=== PATIENT | female | born 1945 | race Caucasian/White ===

== ENCOUNTER 2019-10-04 15:20 | Emergency (ER) | payer MEDICARE, OTHER ==
[~2019-10-04] VITALS: Ht 165.1 cm; Wt 81.7 kg
[~2019-10-04 15:20] MED LIST: ALBUTEROL2.5 MG/31 INH; ASPIR 8181 MG PO; BENZTROPINE MES1 MG PO; CIPRO250 M1 PO; COMPAZINE10 MG PO; COUMADIN 5 MG TA5 M1 PO; CYMBALTA60 MG PO; FENTANYL PATCH75 MCG TRANSDERM; FLOMAX0.4 MG PO; GLUCOPHAGE XR500 MG PO; KLOR-CON SPRIN10 MEQ PO; LISINOPRIL20 MG PO; NEURONTIN300 MG PO; PYRIDOSTIGMINE60 M1 PO; SEROQUEL XR 30300 M1 PO; STELARA45 MG/0.1 SUBQ; STELARA90 MG/1 ML; STOOL SOFTENER100 MG PO; SYNTHROID25 MCG PO; TENORMIN50 MG PO; TRAMADOL 50 MG50 MG PO; TRAZODONE HCL100 MG PO; TRAZODONE HCL50 MG PO; WOMEN'S LAXATIVE5 M1 PO; XANAX 0.5 MG0.5 MG PO
[2019-10-04 16:27] LABS: ABSOLUTE BASOPHILS 0.1 thou/uL (0.0-0.2); ABSOLUTE EOSINOPHILS 0.2 thou/uL (0.0-0.7); ABSOLUTE LYMPHOCYTES 2.1 thou/uL (0.8-5.3); ABSOLUTE MONOCYTES 0.4 thou/uL (0.0-1.2); ABSOLUTE NEUTROPHILS 4.1 thou/uL (1.6-8.1); EOSINOPHILS 3.3 %; HEMATOCRIT 38.2 % (37.0-47.0); HEMOGLOBIN 12.4 gm/dL (12.0-15.0); LYMPHOCYTES 30.8 %; MCH 26.8 pg (26.0-34.0); MCHC 32.4 g/dL (28.0-37.0); MCV 82.6 fL (80.0-100.0); MONOCYTES 5.2 %; MPV 7.7 fl. (7.2-11.1); NUCLEATED RBCS 0 /100WBC; PLATELET COUNT* 142 thou/uL (150-400); POLYS 59.7 %; RBC 4.63 mil/uL (4.20-5.00); RDW-CV 16.3 % (10.5-14.5); WBC 6.9 thou/uL (4.0-11.0)
[2019-10-04 16:33] LABS: CALCIUM 8.4 mg/dL (8.5-10.1); POTASSIUM 3.3 mmol/L (3.5-5.1)
[2019-10-04 16:38] LABS: ALBUMIN 3.8 g/dL (3.4-5.0); TOTAL BILIRUBIN 0.8 mg/dL (<0.1-1.0); TOTAL PROTEIN 7.8 g/dL (6.4-8.2)
[2019-10-04 16:52] LABS: INR 2.2; PROTIME 21.6 Seconds (9.20-11.50)
[2019-10-04 17:34] VITALS: BP 179/64
== END 2019-10-04 17:35 | disposition home or self-care (01) ==
LOC: M.ERS 15:20
PROVIDERS: Nurse Practitioner
DX: S30.1XXA Contusion of abdominal wall, initial encounter (principal); I10 Essential (primary) hypertension; E11.9 Type 2 diabetes mellitus without complications; K21.9 Gastro-esophageal reflux disease without esophagitis; L40.50 Arthropathic psoriasis, unspecified; M79.7 Fibromyalgia; F31.9 Bipolar disorder, unspecified; F41.9 Anxiety disorder, unspecified; Z95.5 Presence of coronary angioplasty implant and graft; Z86.73 Personal history of transient ischemic attack (TIA), and cerebral infarction without residual deficits; Z90.49 Acquired absence of other specified parts of digestive tract; Z90.710 Acquired absence of both cervix and uterus; Z86.718 Personal history of other venous thrombosis and embolism; Z86.14 Personal history of Methicillin resistant Staphylococcus aureus infection; Z91.048 Other nonmedicinal substance allergy status; Z88.0 Allergy status to penicillin; Z88.1 Allergy status to other antibiotic agents; Z88.8 Allergy status to other drugs, medicaments and biological substances; X58.XXXA Exposure to other specified factors, initial encounter; Y93.89 Activity, other specified; Y92.89 Other specified places as the place of occurrence of the external cause; Y99.8 Other external cause status

== ENCOUNTER → 2019-11-28 | Outpatient (CLI) | payer MEDICARE, OTHER ==
--- NOTE | 2019-11-28 14:11 | NUR ---
ARRIVED PER WHEELCHAIR. STAYED IN WHEELCHAIR PER PT REQUEST. PORT ACCESSED WITH OUT DIFFICULTY. GOOD BRISK BLOOD RETURN NOTED AND FLUSHED WITH EASE. LABS DRAWN PER ORDER. PORT FLUSHED AND DEACCESSED. TOLERATED WELL. DENIES QUESTIONS OR NEEDS AT DISCHARGE.
[2019-11-28 14:12] LABS: HEMATOCRIT 33.5 % (37.0-47.0); HEMOGLOBIN 10.7 gm/dL (12.0-15.0); MCH 26.5 pg (26.0-34.0); MCHC 32.1 g/dL (28.0-37.0); MCV 82.6 fL (80.0-100.0); MPV 8.5 fl. (7.2-11.1); RBC 4.05 mil/uL (4.20-5.00); RDW-CV 16.6 % (10.5-14.5); WBC 4.8 thou/uL (4.0-11.0)
[2019-11-28 14:19] LABS: APTT 35.3 Seconds (25.0-31.3); PROTIME 20.1 Seconds (9.20-11.50)
[2019-11-28 14:23] LABS: ALBUMIN 3.5 g/dL (3.4-5.0); ALKALINE PHOSPHATASE 51 U/L (46-116); ANION GAP 7 mmol/L (7-16); BUN 7 mg/dL (7-18); CALCIUM 7.8 mg/dL (8.5-10.1); CHLORIDE 104 mmol/L (98-107); CHOLESTEROL 203 mg/dL (<200); CO2 32 mmol/L (21-32); CREATININE 1.1 mg/dL (0.6-1.3); GLUCOSE 77 mg/dL (70-99); HDL CHOLESTEROL 51 mg/dL (>40); LDL CHOLESTEROL 124 mg/dL (<100); POTASSIUM 3.5 mmol/L (3.5-5.1); SGOT 36 U/L (15-37); SGPT 35 U/L (30-65); SODIUM 143 mmol/L (136-145); TOTAL BILIRUBIN 0.4 mg/dL (<0.1-1.0); TOTAL PROTEIN 7.1 g/dL (6.4-8.2); TRIGLYCERIDE 142 mg/dL (<150); VLDL 28 mg/dL (<40)
[2019-11-28 14:31] LABS: SERUM ASSESSMENT Clear
[2019-11-29 02:08] LABS: GLYCOHEMOGLOBIN (HGB A1C) 5.9 % (4.8-5.6)
== END ==
LOC: M.INFUS 13:17
PROVIDERS: Internal Medicine Rheumatology
DX: L40.50 Arthropathic psoriasis, unspecified (principal); E11.9 Type 2 diabetes mellitus without complications; R35.0 Frequency of micturition; E55.9 Vitamin D deficiency, unspecified; E78.2 Mixed hyperlipidemia; I82.5Y9 Chronic embolism and thrombosis of unspecified deep veins of unspecified proximal lower extremity

== ENCOUNTER → 2019-12-30 | Outpatient (CLI) | payer MEDICARE, OTHER ==
--- NOTE | 2019-12-30 14:22 | NUR ---
ARRIVED PER WHEELCHAIR AND STAYED IN WHEELCHAIR. PORT ACCESSED WITH OUT DIFFICULTY. GOOD BRISK BLOOD RETURN NOTED AND FLUSHED WITH EASE. LABS DRAWN PER STANDING ORDER. PORT FLUSHED AND DEACCESSED. TOLERATED WELL. DENIES QUESTIONS OR NEEDS AT DISCHARGE.
[2019-12-30 14:35] LABS: INR 2.4; PROTIME 23.7 Seconds (9.20-11.50)
[2019-12-30 14:41] LABS: APTT 114.6 Seconds (25.0-31.3)
== END ==
LOC: M.INFUS 02:37
PROVIDERS: ATTEND Internal Medicine Rheumatology
DX: L40.50 Arthropathic psoriasis, unspecified (principal); Z51.81 Encounter for therapeutic drug level monitoring

== ENCOUNTER → 2020-01-27 | Outpatient (CLI) | payer MEDICARE, OTHER ==
[2020-01-27 13:35] VITALS: BP 155/69
[2020-01-27 14:12] LABS: PROTIME 61.9 Seconds (9.20-11.50)
[2020-01-27 14:14] LABS: APTT 129.8 Seconds (25.0-31.3); INR 6.5
--- NOTE | 2020-01-27 14:29 | NUR ---
PORT ACESSED WITH OUT DIFFICULTY. GOOD BRISK BLOOD RETURN AND EASY FLUSH. LABS DRAWN. CRITICAL RESULTS CALLED TO DR. MCGRATH PER PROTOCOL.
== END ==
LOC: M.INFUS 13:30
PROVIDERS: ATTEND Internal Medicine Rheumatology
DX: L40.50 Arthropathic psoriasis, unspecified (principal); Z51.81 Encounter for therapeutic drug level monitoring

== ENCOUNTER → 2020-02-04 | Outpatient (CLI) | payer MEDICARE, OTHER ==
[2020-02-04 14:01] LABS: ABSOLUTE EOSINOPHILS 0.2 thou/uL (0.0-0.7); ABSOLUTE LYMPHOCYTES 2.2 thou/uL (0.8-5.3); ABSOLUTE MONOCYTES 0.4 thou/uL (0.0-1.2); ABSOLUTE NEUTROPHILS 3.8 thou/uL (1.6-8.1); BASOPHILS 0.7 %; EOSINOPHILS 3.7 %; HEMATOCRIT 32.3 % (37.0-47.0); HEMOGLOBIN 10.3 gm/dL (12.0-15.0); LYMPHOCYTES 32.2 %; MCH 24.9 pg (26.0-34.0); MCHC 31.8 g/dL (28.0-37.0); MCV 78.2 fL (80.0-100.0); MONOCYTES 6.4 %; MPV 8.3 fl. (7.2-11.1); NUCLEATED RBCS 0 /100WBC; PLATELET COUNT* 166 thou/uL (150-400); RBC 4.14 mil/uL (4.20-5.00); RDW-CV 16.1 % (10.5-14.5); WBC 6.7 thou/uL (4.0-11.0)
[2020-02-04 14:05] LABS: INR 1.3
[2020-02-04 14:10] LABS: ALBUMIN 3.5 g/dL (3.4-5.0); CALCIUM 7.4 mg/dL (8.5-10.1); CREATININE 1.2 mg/dL (0.6-1.3); POTASSIUM 3.5 mmol/L (3.5-5.1); TOTAL BILIRUBIN 0.6 mg/dL (<0.1-1.0); TOTAL PROTEIN 7.3 g/dL (6.4-8.2)
== END ==
LOC: M.INFUS 12:27
PROVIDERS: Internal Medicine; ATTEND Internal Medicine Rheumatology
DX: Z45.2 Encounter for adjustment and management of vascular access device (principal); I80.209 Phlebitis and thrombophlebitis of unspecified deep vessels of unspecified lower extremity; N18.3 Chronic kidney disease, stage 3 (moderate)